=== PATIENT | female | born 1965 | race Caucasian/White ===

== ENCOUNTER 2022-01-29 17:16 | Emergency (ER) | payer SELFPAY ==
--- NOTE | ~2022-01-29 | CT_ITS ---
EXAMINATION: CT HEAD WITHOUT CONTRAST CLINICAL INFORMATION: New onset seizure. COMPARISON: CT head 05/26/2014 TECHNIQUE: Contiguous axial imaging was performed from the skull base to vertex without intravenous administration of contrast. Coronal and sagittal reformatted images are performed at CT scanner This CT examination was performed using dose optimization techniques as appropriate, variously including the following: *Automated exposure control *Adjustment of mA and/or kV according to patient size (this includes techniques or standardized protocols for targeted exams where dose is matched to indication/reason for exam; i.e. extremities or head) *Use of iterative reconstruction technique DLP: 760 mGy-cm FINDINGS: There is no evidence of acute intracranial hemorrhage or territorial infarction. No abnormal mass effect or midline shift is seen. Jones to white matter differentiation is well preserved. No extra-axial fluid collections are identified. The ventricles are normal in size. There is no abnormal attenuation within the brain parenchyma. The osseous structures and soft tissues are normal. The mastoid air cells and visualized portions of the paranasal sinuses are well aerated. CT/CT head/brain wo con IMPRESSION: No acute intracranial pathology.
[2022-01-29 17:28] VITALS: BP 142/75; PULSE 77; RESP 16; TEMP 36.5; O2SAT 97
--- NOTE | 2022-01-29 17:31 | ECG_ITS ---
Test Reason : SYNCOPE Blood Pressure : / mmHG Vent. Rate : 073 BPM Atrial Rate : 073 BPM P-R Int : 202 ms QRS Dur : 090 ms QT Int : 392 ms P-R-T Axes : 071 018 023 degrees QTc Int : 431 ms Normal sinus rhythm Normal ECG No previous ECGs available Referred By: Sai Quiñonez Electronically Signed By:KENYETTA PEÑA
[2022-01-29 17:33] VITALS: BP 148/90; PULSE 80; O2SAT 98
--- NOTE | 2022-01-29 17:33 | ED_ITS ---
HPI - Syncope General Chief Complaint: Syncope Stated Complaint: SYNCOPE Time Seen by Provider: 01/29/22 17:33 Source: patient Mode of arrival: EMS Limitations: no limitations History of Present Illness HPI narrative: Patient history of borderline hypertension not on any medications was working hard all day today with intense labile is prior to arrival noticed blurred visions sat down on the chair and called her boyfriend while on the phone friend heard her gurgling sound when he came to see her within few minutes notice she confused with no muscle strength patient felt pain in the tongue also. Patient has similar episode about 2 months ago when she has generalized tonic-clonic seizure lasted for few minutes witnessed by her boyfriend not seen a PCP at the time. Also patient complaining of similar episode mild in the sleep patient id no incontinence no fever no cough no shortness of breath chest pain or palpitation Related Data Previous Rx's Medication Instructions Recorded levetiracetam 500 mg tablet 500 mg PO BID #60 tabs 01/29/22 (Keppra) Allergies Allergy/AdvReac Type Severity Reaction Status Date / Time codeine [CODEINE] Allergy Unknown DIZZY Unverified 04/17/20 15:34 Review of Systems Review of Systems: Yes all other systems are reviewed and are negative [facility] Social History Social History Advance Directives: No Advance Directives Information Provided: No Physical Exam Vital Signs: Vital Signs: Last Vital Signs Temp 97.7 F 01/29/22 17:37 Pulse 78 01/29/22 17:37 Resp 14 01/29/22 17:37 BP 142/75 H 01/29/22 17:37 Pulse Ox 14 L 01/29/22 17:37 O2 Del Method 01/29/22 17:37 BMI result Body Mass Index 42.7 Appearance: Alert. Oriented X3. No acute distress. Eyes: PERRLA, No Nystagmus ENT: Pharynx normal. Oral Mucosa moist no tongue bite Neck: Normal inspection. Neck supple. CVS: Normal heart rate and rhythm. Pulses normal. Respiratory: No respiratory distress. Equal air entry bilateral, no wheezing/rales/rhonchi Abdomen: Soft and nontender. Bowel sounds are present, no mass palpable, no CVA tenderness Skin: Skin warm and dry. Normal skin color. Normal skin turgor. Extremities: No lower extremity edema. No calf tenderness Neuro: Oriented X 3. No motor deficit. No sensory deficit.No cerebellar signs , cranial nerves II-XII intact MDM - Syncope MDM Narrative Medical decision making narrative: Patient with syncope episode likely from seizure workup is negative had similar episode few months ago which was witnessed by her boyfriend will discharge patient on Keppra advised to follow with neurologist Differential Diagnosis Differential diagnosis: Likely vasovagal syncope Lab Data Attestation: I reviewed the patient's lab results. Result diagrams: 01/29/22 17:56 01/29/22 17:56 Labs: Lab Results 01/29/22 01/29/22 Range/Units 17:56 17:56 WBC 11.5 H (4.8-10.8) X10*3/uL RBC 5.27 (4.20-5.50) X10*6/uL Hgb 15.3 (12.0-16.0) g/dl Hct 46.4 (37.0-47.0) % MCV 88.0 (80.0-98.0) fL MCH 29.0 (27.0-33.0) pg MCHC 33.0 (31.0-35.0) g/dl RDW 13.0 (11.0-16.0) % Plt Count 343 (160-400) X10*3/uL MPV 10.1 (9.4-12.3) fL Immature Gran % (Auto) 0.5 H (0.0-0.4) % Neut % (Auto) 79.0 H (45-73) % Lymph % (Auto) 14.1 L (20-40) % [place] % (Auto) 4.8 (2-11) % Eos % (Auto) 1.1 (0-4) % Baso % (Auto) 0.5 (0-2) % Lymph # (Auto) 1.6 (1.2-4.9) X10*3/uL [place] # (Auto) 0.6 (0.1-1.2) X10*3/uL Eos # (Auto) 0.1 (0.0-0.4) X10*3/uL Baso # (Auto) 0.1 (0.0-0.2) X10*3/uL Abs Immat Gran (auto) 0.06 H (0.00-0.03) X10*3/uL Absolute Neuts (auto) 9.1 H (2.0-8.3) x10*3/uL Absolute Nucleated RBC 0.000 (0.0-0.012) X10*3/uL Nucleated RBC % (auto) 0.0 (0.0-0.2) /100WBC Smear Tech's Comments VERIFIED Sodium 144 (135-145) mmol/L Potassium 4.2 (3.3-5.1) mmol/L Chloride 111 H (96-108) mmol/L Carbon Dioxide 21 L (22-29) mmol/L Anion Gap 16 (12-20) BUN 28 H (9-16) mg/dL Creatinine 1.13 (0.5-1.4) mg/dL Estim Creat Clear Calc 72.5 Estimated GFR 50 Random Glucose 111 (60-115) mg/dL Calcium 11.1 H (8.4-10.2) mg/dL Total Bilirubin 0.9 (0.0-1.0) mg/dL AST 22 (5-31) U/L ALT 24 (0-31) U/L Alkaline Phosphatase 133 H (39-117) U/L Total Creatine Kinase 84 (26-140) U/L Total Protein 8.2 H (6.5-8.0) g/dL Albumin 4.9 (3.5-5.0) g/dL ECG Data Attestation: I personally reviewed and interpreted this ECG as follows: Interpretation: Normal sinus rhythm heart rate 73 beats per minute normal interval normal axis impression normal EKG Discharge Plan Discharge Clinical Impression: Seizure disorder Patient Disposition: Home, Self-Care Instructions: Epilepsy (ED) Additional Instructions: Likely you have epilepsy disorder, diagnosis need to be confirmed by neurologist Take medication as prescribed for now Avoid driving Report to the ER if recurrence of the seizure episode Prescriptions: New levetiracetam [Keppra] 500 mg tablet 500 mg PO BID Qty: 60 0RF Referrals: Porfirio Benoit MD [Physician] - 1 week
[2022-01-29 17:37] VITALS: BP 142/75; PULSE 78; RESP 14; TEMP 36.5; O2SAT 14; BMI 42.7
[2022-01-29] MEDS: 0.9 % Sodium Chloride 1,000 ML 999 ML IV (17:55)
[2022-01-29 18:04] LABS: PLT CLUMP 1; SCAN SMEAR FLAG 1
[2022-01-29 18:06] LABS: Basophils Absolute Auto 0.1 X10*3/uL (0.0-0.2); Basophils Percent Auto 0.5 % (0-2); Eosinophils Absolute Auto 0.1 X10*3/uL (0.0-0.4); Eosinophils Percent Auto 1.1 % (0-4); Hematocrit 46.4 % (37.0-47.0); Hemoglobin 15.3 g/dl (12.0-16.0); Imm Gran Abs Auto 0.06 X10*3/uL (0.00-0.03); Imm Gran Pct Auto 0.5 % (0.0-0.4); Lymphocytes Absolute Auto 1.6 X10*3/uL (1.2-4.9); Lymphocytes Percent Auto 14.1 % (20-40); MANUAL DIFF FLAG SCAN; Mean Platelet Volume 10.1 fL (9.4-12.3); Monocytes Absolute Auto 0.6 X10*3/uL (0.1-1.2); Monocytes Percent Auto 4.8 % (2-11); Neutrophils Absolute Auto 9.1 x10*3/uL (2.0-8.3); Red Blood Count 5.27 X10*6/uL (4.20-5.50)
[2022-01-29 18:19] LABS: Alanine Aminotransferase 24 U/L (0-31); Albumin Level 4.9 g/dL (3.5-5.0); Alkaline Phosphatase 133 U/L (39-117); Anion Gap 16 (12-20); Aspartate Amino Transferase 22 U/L (5-31); Bilirubin Total 0.9 mg/dL (0.0-1.0); Blood Urea Nitrogen 28 mg/dL (9-16); Calcium 11.1 mg/dL (8.4-10.2); Carbon Dioxide 21 mmol/L (22-29); Chloride 111 mmol/L (96-108); Creatinine Clr Calc Pharmacy 72.5; Estimated Glomerular Filt Rate 50; Glucose Random 111 mg/dL (60-115); Potassium 4.2 mmol/L (3.3-5.1); Sodium 144 mmol/L (135-145); Total Protein 8.2 g/dL (6.5-8.0)
[2022-01-29 18:22] LABS: Platelet Count 343 X10*3/uL (160-400); White Blood Count 11.5 X10*3/uL (4.8-10.8)
[2022-01-29 18:23] LABS: SLIDE REVIEW VERIFIED
[2022-01-29] MEDS: levETIRAcetam in NaCl (iso-os) 1,000 MG/100 ML PIGGYBACK 400 MG IV (18:42)
--- NOTE | 2022-01-29 19:12 | PC.NURSE ---
no seizure activity witnessed in the ed. she reports feeling more clear minded, iv fluids infusing and KEppra was administered.
[2022-01-29 21:04] VITALS: BP 158/95; PULSE 78; RESP 20; O2SAT 97
== END 2022-01-29 21:15 | disposition home or self-care (01) ==
PROVIDERS: Emergency Provider Internal Medicine
DX: G40.909 Epilepsy, unspecified, not intractable, without status epilepticus (principal); R55 Syncope and collapse; Z79.899 Other long term (current) drug therapy
CPT/HCPCS: 36415; 70450; 80053; 82550; 85025; 93005; 96361; 96374; 99283; 99284; J1953

== ENCOUNTER 2025-03-04 13:12 | Emergency (ER) | payer SELFPAY ==
--- NOTE | ~2025-03-04 | US_ITS ---
CLINICAL HISTORY: right 10 oclock area of redness and tenderness Limited ultrasound right breast. No comparison imaging provided. Findings: In the area of concern at 10:00 there are small cystic areas that could represent dilated ducts are indeterminate. No other abnormalities are seen. Impression: Small cystic areas could represent dilated ducts in the region of interest however findings are indeterminate. Recommend comparison to prior imaging or correlation with mammography as initial further characterization. No drainable abscess is seen. This document has been electronically signed by: Shamar Howell MD on 03/04/2025 18:08:57
[2025-03-04 13:28] VITALS: BP 162/77; PULSE 87; RESP 16; TEMP 36.7; O2SAT 99; BMI 35.5
--- NOTE | 2025-03-04 13:28 | ED.GENADULT ---
HPI - General Adult General Stated complaint: severe pain on right breast Related Data Previous Rx's ?Medication ?Instructions ?Recorded levetiracetam 500 mg tablet 500 mg PO BID #60 tabs 01/29/22 (Keppra) Allergies Allergy/AdvReac Type Severity Reaction Status Date / Time codeine (CODEINE) Allergy Unknown DIZZY Verified 03/04/25 13:29 Course Course Course Narrative: RME performed by Roslyn Hurtado PA-C. Patient is a 59 year old assigned female at presenting to the emergency department with right breast pain. Patient states that over the last day she has had right sided breast pain with a lump. Detailed physical exam and review of systems are deferred to the physician assistant primary care. Patient placed back in the waiting room pending room availability. Discharge Plan Discharge Prescriptions: No Action levetiracetam [Keppra] 500 mg tablet 500 mg PO BID Qty: 60 0RF Print Language: Bulgarian
--- NOTE | 2025-03-04 16:46 | ED.GENADULT ---
HPI - General Adult General Chief complaint: General Medical Stated complaint: severe pain on right breast Time Seen by Provider: 03/04/25 16:39 Source: patient and family (Sister) Mode of arrival: ambulatory Limitations: no limitations History of Present Illness ED Provider: DR. Garner HPI narrative: A 59-year-old female came in for evaluation of a right breast painful mass started since yesterday, mild redness hotness, very tender to touch, no discharge, no rashes, nipple discharge, no fever, no chills, no trauma to the chest. Related Data Previous Rx's ?Medication ?Instructions ?Recorded levetiracetam 500 mg tablet 500 mg PO BID #60 tabs 01/29/22 (Keppra) doxycycline hyclate 100 mg tablet 100 mg PO BID #20 tabs 03/04/25 Allergies Allergy/AdvReac Type Severity Reaction Status Date / Time codeine (CODEINE) Allergy Unknown DIZZY Verified 03/04/25 13:29 Review of Systems Review of Systems: All other systems are reviewed and are negative Constitutional: Reports as per HPI and Reports no additional constitutional complaints Eyes: Reports as per HPI and Reports no additional eye complaints Reports system reviewed and no additional complaints, except as documented Cardiovascular: Reports as per HPI and Reports no additional cardiovascular complaints Respiratory: Reports as per HPI and Reports no additional respiratory complaints Gastrointestinal: Reports as per HPI and Reports no additional gastrointestinal complaints Genitourinary: Reports no additional female genitourinary complaints Musculoskeletal: Reports no additional musculoskeletal complaints Skin/Breast: Reports system reviewed and no additional complaints, except as docu Psychiatric: Reports no additional psychiatric complaints Endocrine: Reports no additional endocrine complaints Hematologic/Lymphatic: Reports no additional hematologic/lymphatic complaints Allergic/Immunologic: Reports no additional allergic/immunologic complaints Reports system reviewed and no additional complaints, except as documented and Reports Abnormal speech present [facility] Social History Social History Advance Directives: No Advance Directives Information Provided: No Physical Exam ED Vital Signs: Vital Signs - 24 hr 03/04/25 13:28 Temperature 98.1 F Pulse Rate 87 Respiratory Rate 16 Blood Pressure 162/77 H Pulse Oximetry 99 Oxygen Delivery Method Room Air BMI result Body Mass Index 35.5 Vital signs have been reviewed and appear to be correct. Blood pressure elevated. Heart rate normal. Respiratory rate normal. Temperature normal. Oxygen saturation normal. Appearance: Alert. Oriented X3. No acute distress. Head: Normal external exam. Normocephalic. Atraumatic. No [place] signs noted. No raccoon eyes noted Eyes: PERRLA. EOMI. Conjunctiva and sclera normal. Eyelids normal. ENT: TM's Normal. Pharynx normal. Uvula midline. Moist mucous membranes. No trismus noted. No drooling noted. No muffled voice noted. Neck: Normal inspection. Neck supple. FROM. No adenopathy. Thyroid Normal. No meningeal signs. No neck mass noted. CVS: Normal heart rate and rhythm. Heart sound normal. No murmurs noted. Pulses normal throughout. Respiratory: No respiratory distress. Painless inspiration. Breath sounds normal. No wheezes/rales/rhonchi noted. Chest nontender. No accessory muscle usage noted or decreased air movement noted. 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 Abdomen: Soft and nontender. Bowel sounds normal in all 4 quadrants. No distention noted. No organomegaly noted. No visible injury noted. Back: No CVA tenderness. Full range of motion noted. Skin: Skin warm and dry. Normal skin color. Normal skin turgor. No rashes/lesions/lacerations noted. Extremities: No lower extremity edema. Extremities exhibit normal range of motion. Extremities nontender. Neuro: Oriented X 3. Cranial nerve exam: II-XII are grossly intact No motor deficit. No sensory deficit. Reflexes normal. Course Reevaluation(s) Reevaluation #1: A 59-year-old female came in with right breast focal area of cellulitis, secondary to lack of health insurance patient do not do periodic mammogram, mammogram is now available to get down from the emergency department since it is considered nonemergency testing patient was instructed to follow-up with [facility]. Today's ultrasound reveals no discrete abscess in the right breast but revealed a small cystic area could represent dilated ducts. Recommended start heating pad and start doxycycline. Patient was given instruction to follow-up with outpatient surgery clinic and [facility]. Patient also was instructed to return if her symptoms is not improving. Time: 19:03 Medical Decision Making Differential Diagnosis Differential Diagnoses: The differential diagnosis associated with the presentation includes (Malignancy, abscess, cellulitis, shingles.) Admission/Observation Consideration of admission/observation: Escalation of care including admission/observation considered Lab Data MDM Lab Attestation statement: I reviewed the patient's lab results. 03/04/25 17:04 03/04/25 17:04 Labs: Lab Results 03/04/25 Range/Units 17:04 WBC 16.7 H (4.8-10.8) X10*3/uL RBC 5.05 (4.20-5.50) X10*6/uL Hgb 14.9 (12.0-16.0) g/dl Hct 44.5 (37.0-47.0) % MCV 88.1 (80.0-98.0) fL MCH 29.5 (27.0-33.0) pg MCHC 33.5 (31.0-35.0) g/dl RDW 12.5 (11.0-16.0) % Plt Count 312 (160-400) X10*3/uL MPV 9.9 (9.4-12.3) fL Immature Gran % (Auto) 0.3 (0.0-0.4) % Neut % (Auto) 81.8 H (45-73) % Lymph % (Auto) 11.0 L (20-40) % [place] % (Auto) 6.3 (2-11) % Eos % (Auto) 0.3 (0-4) % Baso % (Auto) 0.3 (0-2) % Lymph # (Auto) 1.8 (1.2-4.9) X10*3/uL [place] # (Auto) 1.1 (0.1-1.2) X10*3/uL Eos # (Auto) 0.1 (0.0-0.4) X10*3/uL Baso # (Auto) 0.1 (0.0-0.2) X10*3/uL Abs Immat Gran (auto) 0.05 H (0.00-0.03) X10*3/uL Absolute Neuts (auto) 13.6 H (2.0-8.3) x10*3/uL Absolute Nucleated RBC 0.000 (0.0-0.012) X10*3/uL Nucleated RBC % (auto) 0.0 (0.0-0.2) /100WBC ESR 30 H (0-20) MM/HR Sodium 138 (135-145) mmol/L Potassium 3.9 (3.3-5.1) mmol/L Chloride 104 (96-108) mmol/L Carbon Dioxide 24 (22-29) mmol/L Anion Gap 14 (12-20) BUN 9 (9-16) mg/dL Creatinine 0.79 (0.5-1.4) mg/dL Estim Creat Clear Calc 90.2 Estimated GFR > 60 Random Glucose 103 (60-115) mg/dL Calcium 10.8 H (8.4-10.2) mg/dL Total Bilirubin 1.4 H (0.0-1.0) mg/dL AST 29 (5-31) U/L ALT 25 (0-31) U/L Alkaline Phosphatase 122 H (39-117) U/L C-Reactive Protein 11.01 H (< or = 0.50) mg/dL Total Protein 8.3 H (6.5-8.0) g/dL Albumin 4.8 (3.5-5.0) g/dL Beta HCG, Quant 4 mIU/mL Independent Interpretation I performed an independent interpretation of an: Ultrasound (Right breast:Small cystic areas could represent dilated ducts in the region of interest however findings are indeterminate. Recommend comparison to prior imaging or correlation with mammography as initial further characterization. No drainable abscess is seen.) Radiology Impression Discussion of test interpretation with radiology: I have reviewed the radiologist's reading. Discharge Plan Discharge Clinical Impression: Cellulitis of right breast Patient Disposition: Home, Self-Care Instructions: Mastitis (ED) Prescriptions: New doxycycline hyclate 100 mg tablet 100 mg PO BID Qty: 20 0RF No Action levetiracetam [Keppra] 500 mg tablet 500 mg PO BID Qty: 60 0RF Referrals: Dong Pretty MD [Physician, General Surgery] [facility] [Physician, Medical] Print Language: Vietnamese
[2025-03-04 17:10] LABS: MANUAL DIFF FLAG NO
[2025-03-04 17:15] LABS: Hematocrit 44.5 % (37.0-47.0); Hemoglobin 14.9 g/dl (12.0-16.0); Imm Gran Abs Auto 0.05 X10*3/uL (0.00-0.03); Imm Gran Pct Auto 0.3 % (0.0-0.4); Lymphocytes Absolute Auto 1.8 X10*3/uL (1.2-4.9); Mean Corpuscular HGB Conc 33.5 g/dl (31.0-35.0); Mean Corpuscular Hemoglobin 29.5 pg (27.0-33.0); Mean Corpuscular Volume 88.1 fL (80.0-98.0); NRBC Abs Auto 0.000 X10*3/uL (0.0-0.012); NRBC Pct Auto 0.0 /100WBC (0.0-0.2); Platelet Count 312 X10*3/uL (160-400); Red Blood Count 5.05 X10*6/uL (4.20-5.50); White Blood Count 16.7 X10*3/uL (4.8-10.8)
[2025-03-04 17:28] LABS: Alanine Aminotransferase 25 U/L (0-31); Albumin Level 4.8 g/dL (3.5-5.0); Alkaline Phosphatase 122 U/L (39-117); Anion Gap 14 (12-20); Aspartate Amino Transferase 29 U/L (5-31); Blood Urea Nitrogen 9 mg/dL (9-16); Calcium 10.8 mg/dL (8.4-10.2); Carbon Dioxide 24 mmol/L (22-29); Chloride 104 mmol/L (96-108); Creatinine Clr Calc Pharmacy 90.2; Estimated Glomerular Filt Rate > 60; Potassium 3.9 mmol/L (3.3-5.1); Sodium 138 mmol/L (135-145); Total Protein 8.3 g/dL (6.5-8.0)
[2025-03-04 19:12] VITALS: BP 147/87; PULSE 82; RESP 18; TEMP 37.2; O2SAT 99
[2025-03-04 19:26] VITALS: BP 147/87; PULSE 82; RESP 18; TEMP 37.2; O2SAT 99
== END 2025-03-04 19:27 | disposition home or self-care (01) ==
PROVIDERS: Emergency Provider Emergency Medicine
DX: N61.0 Mastitis without abscess (principal); N64.4 Mastodynia; Z79.899 Other long term (current) drug therapy
CPT/HCPCS: 36415; 76642; 80053; 84702; 85025; 85652; 86140; 99283; 99284

== ENCOUNTER → 2025-03-04 16:45 | Outpatient (BNV) | payer SELFPAY | PROVIDERS: Emergency Provider Emergency Medicine; Visit Provider Radiology Diagnostic Radiology | DX: N64.4 Mastodynia (principal) | CPT/HCPCS: 76642 ==

== ENCOUNTER 2025-07-15 12:05 | Emergency (ER) | payer OTHER, SELFPAY ==
[2025-07-15 12:25] VITALS: BP 191/91; PULSE 75; RESP 16; TEMP 36.1; O2SAT 98; BMI 35.5
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
[2025-07-15 12:39] VITALS: BP 191/91; PULSE 75; RESP 16; TEMP 36.1; O2SAT 98
--- OUTSIDE RECORDS SUMMARY | 2025-07-15 18:16 | XMS_ITS | Clinical Summary ---
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 Name Role Phone Unavailable Primary Care Provider Unavailabl e Social History Tobacco Use Types Packs/Day Years Used Date Smoking Tobacco: Never Assessed Comments Unknown Sex and Gender Information Value Date Recorded Sex Assigned at Not on file Legal Sex Female 10:02 AM EST Gender Identity Not on file Sexual Orientation Not on file Plan of Treatment Health Maintenance Due Date Last Done Comments Breast Cancer Screening 1965 DTaP,Tdap,and Td Vaccines (1 - Tdap) 12/18/1983 Cervical Cancer Screening: P ap Smear 1985 Pneumococcal Vaccine: 50+ Ye ars (1 of 1 - PCV) 2014 Zoster Vaccines (1 of 2) 2014 Depression Screening 08/01/2024 COVID-19 Vaccine ( - 2024-2 6 season) 2025 Influenza Vaccine (#1) 2025 RSV Immunization Adult Patie nts (1 - 1-dose 75+ series) 12/18/2039 HIB Vaccines Aged Out No longer eligi ble based on patient's age to complete this topic HPV Vaccines Aged Out No longer eligi ble based on patient's age to complete this topic Hepatitis A Vaccines Aged Out No long er eligible based on patient's age to complete this topic Hepatitis B Vaccines Aged Out No long er eligible based on patient's age to complete this topic IPV Vaccines Aged Out No longer eligi ble based on patient's age to complete this topic MMR Vaccines Aged Out No longer eligi ble based on patient's age to complete this topic Meningococcal ACWY Vaccine Aged Out N o longer eligible based on patient's age to complete this topic Meningococcal B Vaccine Aged Out No l onger eligible based on patient's age to complete this topic RSV Immunization Patients Un nash 20 months Aged Out No longer eligible b ased on patient's age to complete this topic Varicella Vaccines Aged Out No longer eligible based on patient's age to complete this topic
== END 2025-07-15 12:39 | disposition home or self-care (01) ==
LOC: HO.ED 12:37
PROVIDERS: Emergency Provider Emergency Medicine
DX: M54.2 Cervicalgia (principal); R51.9 Headache, unspecified; M54.9 Dorsalgia, unspecified; V49.49XA Driver injured in collision with other motor vehicles in traffic accident, initial encounter; Y93.9 Activity, unspecified; Y92.414 Local residential or business street as the place of occurrence of the external cause
CPT/HCPCS: 99282; 99283